=== PATIENT | male | born 1960 | race Caucasian/White ===

== ENCOUNTER → 2021-03-20 14:35 | Outpatient (CLI) | payer OTHER, SELFPAY ==
[2021-03-20 15:00] LABS: COVID19 -Nasal RAPID Negative (Negative)
== END ==
PROVIDERS: PCP Specialist; Visit Provider Surgery
DX: Z01.812 Encounter for preprocedural laboratory examination (principal); Z20.822 Contact with and (suspected) exposure to COVID-19
CPT/HCPCS: 87635; C9803

== ENCOUNTER 2021-03-23 10:58 | Day surgery (SDC) | payer OTHER, SELFPAY ==
[2021-03-23] VITALS (8 sets, daily range): BP systolic 90–129; BP diastolic 51–75; PULSE 58–77; RESP 14–17; TEMP 36.1–37; O2SAT 94–100; BMI 25.8
--- NOTE | 2021-03-23 | PATH_ITS ---
[facility] Accession Number: [id number] . 01 Material submitted: . PART A: duodenum - DUODENUM PART B: gastrointestinal site - GASTRIC PART C: esophagus - DISTAL ESOPHAGUS . 02 Diagnosis: A. Duodenum, Biopsy: Duodenal mucosa with no diagnostic abnormality. Negative for active inflammation, features of sprue, dysplasia, or malignancy. . B. Stomach, Biopsy: Body type mucosa with no diagnostic abnormality. Negative for Helicobacter by immunohistochemistry. Negative for intestinal metaplasia. Negative for dysplasia and malignancy. . C. Distal Esophagus, Biopsy: Squamous epithelium with no diagnostic abnormality. Intraepithelial eosinophils are not increased. Negative for dysplasia and malignancy. [facility] 03/26/2021 1529 Local . 02 Electronically signed: . Bonnie Blank MD, Pathologist NPI- [id number] . 01 Gross description: . Part A: DUODENUM: Received in formalin are 2 fragment(s) of padilla, soft tissue measuring 0.2 x 0.2 x 0.2 cm to 0.2 x 0.1 x 0.1 cm submitted entirely in 1 cassette(s) Part B: GASTRIC: Received in formalin are 2 fragment(s) of padilla, soft tissue measuring 0.3 x 0.2 x 0.2 cm to 0.2 x 0.2 x 0.2 cm submitted entirely in 1 cassette(s) Part C: DISTAL ESOPHAGUS: Received in formalin are 2 fragment(s) of padilla, soft tissue measuring 0.4 x 0.4 x 0.1 cm to 0.2 x 0.2 x 0.1 cm submitted entirely in 1 cassette(s) /JAMAL 03/24/2021 0541 Local . 02 Microscopic: . B. An immunohistochemical stain was performed to evaluate for Helicobacter organisms and is negative. The control stain showed appropriate reactivity. . * This test was developed and its performance characteristics determined by [facility]. It has not been cleared or approved by the U.[place]. Food and Drug Administration. The FDA has determined that such clearance or approval is not necessary. This test is used for clinical purposes. It should not be regarded as investigational or for research. . 02 Pathologist provided ICD-10: R10.13 . 02 CPT . 630230, 796026, 311276, [id number] Performed at: 01 [facility] Cytology [address] [id number] MD Papi Mcconnell MD Phone: [phone] Performed at: 02 [facility] [address] [place] [id number] MD Bonnie Blank MD Phone: [phone]
[2021-03-23] MEDS: LACTATED RINGERS 1,000 ML 42 ML IV (11:55)
--- NOTE | 2021-03-23 11:56 | SUR.PREOP ---
Addendum entered by Latricia Prabhakar R.N. 03/23/21 12:16: O2 at 4LNP Original Note: Fainted briefly after IV start. Stated that he was getting hot, blankets were removed and cool washcloths were being obtained. HOB lowered. Was non responsive for approximately 5-10 seconds. Pulse strong and regular. Place on O2 per NC. Aroused easily, oriented, stated that he was feeling better and that cool washcloths helped. Allowed to rest with eyes closed while documentation is being done. Responded with Thanks when told that this was the plan.
--- NOTE | 2021-03-23 12:56 | PM.PREOP ---
Pre-operative Note COVID-19 COVID-19 status: Negative Result date/Date tested (Pos, Neg/Pending): 03/20/21 Interval Note History & Physical reviewed/Exam performed by Physician: Yes Changes to H&P: No
--- NOTE | 2021-03-23 13:03 | PM.OP.ENDO ---
Operative Date/Time/Diagnoses Date of procedure: 03/23/21 Time of procedure: 13:03 Pre-op diagnosis: 1) Epigastric pain, early satiety, bloating 2) Due for screening colonoscopy Post-op diagnosis: other (Moderate endoscopic gastritis, no gastric evidence outlet obstruction) Procedure & Clinicians Study performed: Esophagogastroduodenoscopy Biopsies of duodenum, stomach, distal esophagus Colonoscopy Same procedure as scheduled: Yes Indications: Early satiety, epigastric pain, bloating Due for screening colonoscopy The Anesthesiologist was consulted for deep sedation with propofol since the patient had awareness under anesthesia during his prior colonoscopy. Surgeon: Lauren Wild Procedure Notes SCOAP/Timeout: Performed Procedure in detail: The patient was brought to the room and placed in left lateral decubitus position with all bony prominences padded. A bite block was positioned in the patient's mouth to protect the lips, teeth, and tongue for the procedure. A time-out was performed and then the patient was put under deep sedation by Dr. Kent using propofol. Once adequately sedated, the procedure was begun. The lubricated gastroscope was passed through the bite block and across the tongue and into the esophagus without incident. A tubular view of the esophagus was maintained as the scope was advanced through the esophagus and into the stomach. The scope was advanced through the stomach and to the pylorus. The scope was gently popped through the pylorus and into the duodenal bulb. The scope was flexed and advanced into the second and third portions of the duodenum. The duodenum and duodenal bulb appeared mildly erythematous. Biopsies were taken. The scope was withdrawn into the stomach. The stomach revealed some endoscopic gastritis. No peptic ulcers or neoplasms were seen. Biopsies were taken. The scope was retroflexed and the gastric cardia was examined. There was no evidence of hiatal hernia or gaping around the scope.. The scope was then straightened, and withdrawn into the esophagus. The Z-line is broken, but did not reveal any large tongues of salmon-colored mucosa coming up into the esophagus. Biopsies were taken. The scope was then withdrawn through the esophagus with a tubular view. The scope was then withdrawn from the patient and attention was turned towards the colonoscopy portion of the procedure. A rectal exam was performed revealing no abnormalities. The colonoscope was then introduced to the rectum and advanced to the cecum in the usual fashion. The cecum was identified by the appendiceal orifice, the mucosal tri-fold, and the ileocecal valve. The scope was then retracted while rotating side to side and examining each mucosal fold. Colon was very tortuous, with many redundant folds, but no evidence of neoplasm, or diverticulosis/diverticulitis. At the conclusion of the procedure retroflexion was performed and small grade 1-2 internal hemorrhoids without stigmata of bleeding were seen. The scope was then withdrawn from the rectum the procedure was concluded. The patient tolerated the procedure well and was transferred to the PACU in stable condition. Post-procedure Follow up: as needed Disposition: PACU
--- NOTE | 2021-03-23 14:30 | SUR.PHASEII ---
Pt ready to go, pt left when ready and left in stable condition, belly soft tolerated flds.
== END 2021-03-23 14:30 | disposition home or self-care (01) ==
PROVIDERS: PCP Specialist; Referring Provider Surgery; Visit Provider Surgery
PROC: 0DJ08ZZ Inspection of Upper Intestinal Tract, Via Natural or Artificial Opening Endoscopic (ICD-10-PCS; CPT 43235; principal; 2021-03-23 12:15)
PROC: 0DJD8ZZ Inspection of Lower Intestinal Tract, Via Natural or Artificial Opening Endoscopic (ICD-10-PCS; CPT 45378; 2021-03-23 12:15)
DX: Z12.11 Encounter for screening for malignant neoplasm of colon (principal); R10.13 Epigastric pain; R68.81 Early satiety; K64.0 First degree hemorrhoids; K29.70 Gastritis, unspecified, without bleeding
CPT/HCPCS: 43239; 45378; J2704